=== PATIENT | male | born 1965 | race Caucasian/White ===

== ENCOUNTER → 2017-12-09 08:54 | Day surgery (SDC) | payer MEDICAID, SELFPAY ==
[2017-12-08 08:23] VITALS: BMI 18.8
[2017-12-09 09:27] LABS: Hematocrit 42.7 % (40-54); Hemoglobin 14.3 g/dl (13.0-16.5); Mean Corp Hgb Conc 33.5 g/gl (32-36); Mean Corpuscular Hgb 30.4 pg (27.0-32.0); Mean Corpuscular Volume 90.9 fL (80-94); Mean Platelet Vol. 9.9 fl (6.2-12.0); Platelet Count 294 K/mm3 (150-450); RBC Distribution Width CV 13.1 % (11.6-14.6); RBC Distribution Width SD 43.5 fl (35.1-43.9); White Blood Count 6.7 K/mm3 (4.4-11.0)
[2017-12-09 09:31] LABS: Scan Indicated on CBC? Y/N NO
[2017-12-09 09:43] LABS: Albumin, Serum 3.7 g/dL (3.4-5.0); BUN 14 mg/dL (7-18); Calcium,Total 8.4 mg/dL (8.5-10.1); Chloride 104 mmol/L (98-107); Creatinine, Serum 0.94 mg/dL (0.70-1.30); EST Glomerular Filtration Rate 90 mL/min (>60); Est Glom Filt Rate - Afr Amer 109 mL/min (>60); Glucose 296 mg/dL (70-110); Phosphorus 2.4 mg/dL (2.5-4.9); Potassium 4.5 mmol/L (3.5-5.1); Sodium Level 138 mmol/L (136-145)
[2017-12-09 09:46] LABS: Bedside Glucose 318 mg/dL (70-110)
--- NOTE | 2017-12-09 10:56 | PCM.OPRPT ---
Problem List (1) PAD (peripheral artery disease) Status: Chronic Report of Operation Date of Procedure: 12/09/17 Pre-Operative Diagnosis: Peripheral arterial disease with aortoiliac occlusive disease Post-Operative Diagnosis: The same Surgery/Procedure Performed:: 1. Ultrasound-guided access retrograde left brachial artery. #2 aortogram with bilateral iliofemoral imaging. #3 stent the right common iliac artery with a 7 x 29 Brianna post balloon with an 8 mm #4 stent the left common iliac artery with a 7 x 29 Brianna post balloon with an 8 mm balloon #5 balloon the distal aorta with a 10 mm balloon Type of Anesthesia:: Sedation,Conscious Description of Procedure: Patient brought to the [employer]. Underwent appropriate timeout consent. Prepped and draped in a sterile fashion. We did ultrasound-guided access retrograde the left brachial put in a 5 Japanese sheath get the Glidewire down the descending thoracic aorta to the distal aorta brought then in a long 6 Japanese sheath gave 5000 units of heparin after the sheath was down we did an aortogram with bilateral iliac imaging at the wire down the right side did oblique imaging of the right iliac we then brought in a 7 x 29 Brianna deployed in good position post balloon with an 8 mm balloon balloon and also into the aorta completion look markedly improved we then get the wire down the left side did PUENTES imaging to see the oblique view of their marked off the hypogastric and the bifurcation and put a 7 x 29 on this side also ballooned with an 8 mm balloon. This also looked much improved we then brought in a 10 mm balloon balloon the distal aorta look like had some improvement the balloon did rupture so we left that intact then did not stent the distal but will follow it. We removed out the balloon did a completion aortogram everything looked much better with better flow removed out the sheath put a shorter sheath gave protamine 30. Has been given 5000 heparin once we have gotten access at the beginning. Sheath was removed pressure was held brought to recovery stable condition
[2017-12-09 12:56] LABS: Bedside Glucose 240 mg/dL (70-110)
[2017-12-09 14:16] LABS: Bedside Glucose 377 mg/dL (70-110)
== END ==
PROVIDERS: Visit Provider Surgery Vascular Surgery
DX: I70.213 Atherosclerosis of native arteries of extremities with intermittent claudication, bilateral legs (principal); I74.09 Other arterial embolism and thrombosis of abdominal aorta; I35.0 Nonrheumatic aortic (valve) stenosis; E11.9 Type 2 diabetes mellitus without complications; I10 Essential (primary) hypertension; E78.00 Pure hypercholesterolemia, unspecified; F17.210 Nicotine dependence, cigarettes, uncomplicated; Z79.4 Long term (current) use of insulin
CPT/HCPCS: 36200; 36415; 37221; 37246; 75625; 76937; 80069; 82962; 85027; 99152; 99153; J7040; Q9967; C1725; C1769; C1876; C1894

== ENCOUNTER → 2017-12-17 14:20 | Outpatient (CLI) | payer MEDICAID, SELFPAY | PROVIDERS: Visit Provider Surgery Vascular Surgery | DX: M79.602 Pain in left arm (principal); I35.0 Nonrheumatic aortic (valve) stenosis; I70.213 Atherosclerosis of native arteries of extremities with intermittent claudication, bilateral legs; I74.9 Embolism and thrombosis of unspecified artery; I10 Essential (primary) hypertension; E11.9 Type 2 diabetes mellitus without complications; F17.200 Nicotine dependence, unspecified, uncomplicated; Z95.820 Peripheral vascular angioplasty status with implants and grafts | CPT/HCPCS: 93931 ==